=== PATIENT | female | born 1960 | race Caucasian/White ===

== ENCOUNTER → 2017-10-14 | Outpatient (CLI) | payer OTHER ==
--- NOTE | 2017-10-17 09:29 | MM ---
Reason for exam: screening (asymptomatic). Last mammogram was performed 3 years ago. History: Patient is postmenopausal. Benign lumpectomy of the right breast, 2004. Took estrogen for 8 years beginning at age 35. Physical Findings: A clinical breast exam by your physician is recommended on an annual basis and results should be correlated with mammographic findings. MG Screening Mammo w CAD Bilateral CC and MLO view(s) were taken. Prior study comparison: October 11, 2014, bilateral MG screening mammo w CAD. January 04, 2013, bilateral digital screening mammo w/CAD. The breast tissue is heterogeneously dense. This may lower the sensitivity of mammography. There arefew typically benign round calcifications in the left breast. There is no discrete abnormality. ASSESSMENT: Benign, BI-RAD 2 RECOMMENDATION: Routine screening mammogram of both breasts in 1 year.
== END | disposition home or self-care (01) ==
LOC: RADMAMWWP 06:54
PROVIDERS: ATTEND Family Medicine
DX: Z12.31 Encounter for screening mammogram for malignant neoplasm of breast (principal)
CPT/HCPCS: 77067

== ENCOUNTER → 2018-11-07 | Outpatient (CLI) | payer OTHER ==
--- NOTE | 2018-11-08 10:24 | MM ---
Reason for exam: screening (asymptomatic). Last mammogram was performed 1 year and 1 month ago. History: Patient is postmenopausal. Benign lumpectomy of the right breast, 2004. Took estrogen for 8 years beginning at age 35. Physical Findings: A clinical breast exam by your physician is recommended on an annual basis and results should be correlated with mammographic findings. MG Screening Mammo w CAD Bilateral CC and MLO view(s) were taken. Prior study comparison: October 14, 2017, bilateral MG screening mammo w CAD. October 11, 2014, bilateral MG screening mammo w CAD. The breast tissue is heterogeneously dense. This may lower the sensitivity of mammography. There are benign appearing round calcifications in the left breast. There is no discrete abnormality. ASSESSMENT: Benign, BI-RAD 2 RECOMMENDATION: Routine screening mammogram of both breasts in 1 year.
== END | disposition home or self-care (01) ==
LOC: RADMAMWWP 14:07
PROVIDERS: ATTEND Family Medicine
DX: Z12.31 Encounter for screening mammogram for malignant neoplasm of breast (principal)
CPT/HCPCS: 77067

== ENCOUNTER 2019-01-25 19:44 | Emergency (ER) | payer OTHER ==
[2019-01-25 19:48] VITALS: BP 131/87; PULSE 88; RESP 16; TEMP 98.5
[2019-01-25] MEDS ORDERED: KETOROLAC 30 MG/ML 1 ML VIAL IM STA (20:04)
--- NOTE | 2019-01-25 20:16 | XR ---
EXAMINATION TYPE: XR ankle complete LT DATE OF EXAM: 01/25/2019 COMPARISON: NONE HISTORY: Pain and swelling TECHNIQUE: 3 views FINDINGS: There is significant soft tissue swelling over the lateral malleolus. There is irregular co rtex lateral aspect of distal fibula suspicious for nondisplaced chip fracture. There is no dislocati on. Ankle joint spaces are normal. IMPRESSION: There is probably a nondisplaced chip fracture of the tip of the distal fibula. Soft tiss ue swelling.
--- NOTE | 2019-01-25 20:20 | XR ---
EXAMINATION TYPE: XR foot complete LT DATE OF EXAM: 01/25/2019 COMPARISON: NONE HISTORY: Pain and swelling TECHNIQUE: 3 views FINDINGS: Metatarsals are intact. There is a nondisplaced fracture of the distal fibula. Fragment laura sures 1 cm. There are no erosions. Joint spaces are normal. IMPRESSION: Nondisplaced distal fibula fracture. Lateral soft tissue swelling at the ankle.
--- NOTE | 2019-01-25 21:06 | ED ---
General Adult HPI - General Chief complaint: Extremity Injury, Lower Stated complaint: ankle/foot injury Time Seen by Provider: 01/25/19 19:54 Source: patient Mode of arrival: ambulatory Limitations: no limitations - History of Present Illness Initial comments: Patient is a 58-year-old female presenting to the emergency department with a chief complaint of ankle pain. Patient reports she tripped and fell and in attempt to brace herself she inverted her left ankle. Patient reports ecchymosis, swelling and pain along the left lateral malleolus. patient denies any numbness or team. Patient reports the pain is a 9 and throbbing. Patient denies taking medication to alleviate the symptoms. Patient reports pain with any movement or weightbearing. Patient reports resting it does help alleviate some of the pain. - Related Data Allergies Allergy/AdvReac Type Severity Reaction Status Date / Time amoxicillin Allergy Swelling Verified 01/25/19 19:48 erythromycin base Allergy Rash/Hives Verified 01/25/19 19:48 sulfamethoxazole Allergy Rash/Hives Verified 01/25/19 19:48 [From ] trimethoprim [From ] Allergy Rash/Hives Verified 01/25/19 19:48 Review of Systems ROS Statement: Those systems with pertinent positive or pertinent negative responses have been documented in the HPI. ROS Other: All systems not noted in ROS Statement are negative. Past Medical History Past Medical History: No Reported History History of Any Multi-Drug Resistant Organisms: None Reported Past Surgical History: No Surgical Hx Reported Past Psychological History: No Psychological Hx Reported Smoking Status: Current every day smoker Past Alcohol Use History: None Reported Past Drug Use History: None Reported General Exam Limitations: no limitations General appearance: alert, in no apparent distress Head exam: Present: atraumatic, normocephalic, normal inspection Eye exam: Present: normal appearance ENT exam: Present: normal exam, normal external ear exam Neck exam: Present: normal inspection Respiratory exam: Present: normal lung sounds bilaterally Cardiovascular Exam: Present: regular rate, normal rhythm, normal heart sounds Extremities exam: Present: tenderness (Tenderness along the left lateral malleolus.), normal capillary refill, joint swelling (Left ankle), other (+2 dorsalis pedis and posterior tibialis bilaterally.). Absent: normal inspection (Soft tissue swelling, ecchymosis on the left lateral malleolus. No abrasions or lacerations.), full ROM (Limited range of motion due to pain.), calf tenderness Back exam: Present: normal inspection, full ROM Neurological exam: Present: alert, oriented X3 Psychiatric exam: Present: normal affect, normal mood Skin exam: Present: warm, intact, normal color Course Vital Signs 01/25/19 19:45 Temperature 98.5 F Pulse Rate 88 Respiratory 16 Rate Blood Pressure 131/87 O2 Sat by Pulse 99 Oximetry Procedures - Orthopedic Splinting/Casting Injury #1 Side: left Lower Extremity Injury Location: ankle Lower Extremity Immobilizer: posterior splint, stirrup splint, Navdeep wrap, synthetic pre-padded splint Other Orthopedic Equipment: crutches Medical Decision Making - Medical Decision Making Patient is a 58-year-old female presenting to the emergency department with chief complaint of ankle pain. Patient does have edema, discoloration and tenderness along the left lateral malleolus. X-rays indicative of a nondisplaced distal fibular fracture. Patient refused narcotic analgesics. Patient given Toradol. Posterior splint and stirrup placed. Patient advised to alternate between Tylenol and ibuprofen for pain control. Patient advised to follow with orthopedics and further management. Strict return parameters were thoroughly discussed the patient was understanding and agreeable. Patient states she has a crutches at home. Case discussed with physician. Disposition Clinical Impression: Nondisplaced fracture of distal end of fibula Disposition: HOME SELF-CARE Condition: Stable Instructions (If sedation given, give patient instructions): Ankle Fracture (DC) Additional Instructions: Please follow with orthopedics. Alternate between Tylenol and ibuprofen for pain control. Apply ice compress to minimize symptoms. Please return to emergency department if symptoms worsen. Is patient prescribed a controlled substance at d/c from ED?: No Referrals: Padmini Villavicencio DO [Primary Care Provider] - 1-2 days Joe Zepeda PAC [[facility] [employer] [facility]] - 1-2 days Time of Disposition: 21:05
== END 2019-01-25 21:14 | disposition home or self-care (01) ==
LOC: EC 19:44
DX: S82.832A Other fracture of upper and lower end of left fibula, initial encounter for closed fracture (principal); F17.200 Nicotine dependence, unspecified, uncomplicated; Z88.0 Allergy status to penicillin; Z88.1 Allergy status to other antibiotic agents; Z88.2 Allergy status to sulfonamides; Z53.29 Procedure and treatment not carried out because of patient's decision for other reasons; W01.0XXA Fall on same level from slipping, tripping and stumbling without subsequent striking against object, initial encounter; Y92.009 Unspecified place in unspecified non-institutional (private) residence as the place of occurrence of the external cause
CPT/HCPCS: 73610; 73630; 99283; 29515; 96372; J1885

== ENCOUNTER → 2019-10-03 | Outpatient (CLI) | payer OTHER | END | disposition home or self-care (01) | LOC: LABWHC1 08:24 | PROVIDERS: ATTEND Surgery | DX: Z11.59 Encounter for screening for other viral diseases (principal) ==

== ENCOUNTER 2019-10-05 09:21 | Day surgery (SDC) | payer OTHER ==
[2019-10-04 10:19] VITALS: BMI 19.3
[~2019-10-05 09:21] MED LIST: LACTATED RINGERS 1,000 ML IV SCH
[2019-10-05 10:04] VITALS: RESP 16; TEMP 97.8
[2019-10-05] MEDS ORDERED: LIDOCAINE 1% INJ 10MG/ML (20 ML MDV) ONE (10:18)
[2019-10-05] MEDS ORDERED: PROPOFOL 10 MG/ML 20 ML VIAL IV ONE (10:18)
--- NOTE | 2019-10-05 10:20 | P.GSHP ---
History of Present Illness H&P Date: 10/05/19 Chief Complaint: Nausea, right upper quadrant pain This a 58-year-old female presents today for EGD. Patient is a complete some nausea and epigastric/right upper quadrant pain Past Medical History Past Medical History: GERD/Reflux Additional Past Medical History / Comment(s): STATES STOMACH PAIN AND FEELS FULL. History of Any Multi-Drug Resistant Organisms: None Reported Past Surgical History: Appendectomy, Hysterectomy Additional Past Surgical History / Comment(s): EXPLORATORY SURGERY, COLONOSCOPY Past Anesthesia/Blood Transfusion Reactions: No Reported Reaction Past Psychological History: No Psychological Hx Reported Smoking Status: Current every day smoker Past Alcohol Use History: None Reported Additional Past Alcohol Use History / Comment(s): SMOKES 5-6 CIGARETTES/DAY. , SMOKED OFF AND ON APPROX 15-20 YEARS. Past Drug Use History: None Reported - Past Family History Mother Family Medical History: No Reported History Medications and Allergies Home Medications Medication Instructions Recorded Confirmed Type Cetirizine HCl [Children's Zyrtec 10 mg PO DAILY PRN 10/04/19 10/05/19 History Chewable] Famotidine [Pepcid] 20 mg PO BID 10/04/19 10/05/19 History Allergies Allergy/AdvReac Type Severity Reaction Status Date / Time amoxicillin Allergy Swelling Verified 10/05/19 09:57 erythromycin base Allergy Rash/Hives Verified 10/05/19 09:57 sulfamethoxazole Allergy Rash/Hives Verified 10/05/19 09:57 [From ] trimethoprim [From ] Allergy Rash/Hives Verified 10/05/19 09:57 Surgical - Exam Vital Signs Temp Pulse Resp BP Pulse Ox 97.8 F 88 16 143/76 99 10/05/19 10:03 10/05/19 10:03 10/05/19 10:03 10/05/19 10:03 10/05/19 10:03 - General well developed, well nourished, no distress - Eyes PERRL - ENT normal pinna - Neck no masses - Respiratory normal expansion - Cardiovascular Rhythm: regular - Abdomen Abdomen: soft, non tender Assessment and Plan Assessment: History of epigastric and right quadrant pain. We'll perform EGD.
--- NOTE | 2019-10-05 10:27 | P.OP ---
Date of Procedure: 10/05/19 Preoperative Diagnosis: Nausea, right upper quadrant pain Postoperative Diagnosis: Mild antral gastritis No significant hiatal hernia Mild esophagitis Procedure(s) Performed: EGD Anesthesia: MAC Surgeon: Robbie Olvera Pathology: other (Antral, esophagus) Condition: stable Disposition: PACU Description of Procedure: The patient's placed on the endoscopy table in the lateral position. She received IV sedation. The gastroscope was oropharynx and passed in the esophagus and into the stomach. Scope was then placed through the pylorus. The first and portion duodenum appeared normal. Scope was then brought back the antrum and this appeared mildly inflamed. A biopsies performed. Scope was unretroflexed and remainder of the stomach appeared normal. There is no significant hiatal hernia. GE junction was at 47. The distal esophagus appeared mildly inflamed and a biopsies performed. The proximal esophagus appeared normal. Scope was withdrawn for patient.
[2019-10-05 10:59] VITALS: BP 131/82; PULSE 84
--- NOTE | 2019-10-05 14:56 | NM ---
Nuclear medicine hepatobiliary scan. HISTORY: Pain. DOSAGE: The patient received 1.1 micrograms of CCK and 4.2 mCi of Technetium 99m Choletec. FINDINGS: There is normal hepatic extraction. The gallbladder is seen by 30 minutes. There is bilia ry to bowel clearance is not seen at 60 minutes and delayed. Ejection fraction is 12%. IMPRESSION: 1. Correlate for biliary dyskinesia
== END 2019-10-05 11:55 | disposition home or self-care (01) ==
LOC: ORWHC2ENDO 09:21
PROVIDERS: ATTEND Surgery
DX: K29.50 Unspecified chronic gastritis without bleeding (principal); K21.0 Gastro-esophageal reflux disease with esophagitis; Z90.710 Acquired absence of both cervix and uterus; Z98.890 Other specified postprocedural states; F17.210 Nicotine dependence, cigarettes, uncomplicated; Z79.899 Other long term (current) drug therapy; Z88.1 Allergy status to other antibiotic agents; Z88.0 Allergy status to penicillin; Z88.2 Allergy status to sulfonamides
CPT/HCPCS: 88305; 78227; 43239; A9537; J2805; J2001; J2704

== ENCOUNTER 2019-10-15 08:17 | Day surgery (SDC) | payer OTHER ==
[2019-10-12 12:00] VITALS: BMI 18.9
[~2019-10-15 08:17] MED LIST changes: +ACETAMINOPHEN TAB 500 MG TAB PO ONE; +CLINDAMYCIN 900 MG in DEXTROSE 5% IN WATER 50 ML IVPB ONE; +DEXAMETHASONE SOD PHOSPHATE 10 MG/ML 1 ML VIAL IV ONE; +GENTAMICIN 300 MG in SODIUM CHLORIDE 0.9% 100 ML IVPB ONE; +HEPARIN SODIUM,PORCINE 5,000 UNIT/ML 1 ML VIAL SQ ONE; +HYDROmorphone 0.5 MG/0.5 ML SYRINGE IVP PRN; +LIDOCAINE 1% (10MG/ML) FOR IV START INTRADERMA PRN; +ONDANSETRON 4 MG/2 ML VIAL IVP ONE
--- NOTE | 2019-10-15 09:44 | P.GSHP ---
History of Present Illness H&P Date: 10/15/19 Chief Complaint: Right quadrant pain Is a 58-year-old female second instrument quadrant pain. Her recent HIDA scan shows abnormal ejection fraction consistent with biliary dyskinesia and chronic cholecystitis. Past Medical History Past Medical History: GERD/Reflux Additional Past Medical History / Comment(s): environmental allergies History of Any Multi-Drug Resistant Organisms: None Reported Past Surgical History: Hysterectomy Additional Past Surgical History / Comment(s): exploratory laproscopic sx. Past Anesthesia/Blood Transfusion Reactions: No Reported Reaction Smoking Status: Current every day smoker - Past Family History Mother Family Medical History: No Reported History Medications and Allergies Home Medications Medication Instructions Recorded Confirmed Type Cetirizine HCl [Children's Zyrtec 10 mg PO DAILY PRN 10/04/19 10/15/19 History Chewable] Famotidine [Pepcid] 20 mg PO BID 10/04/19 10/15/19 History Allergies Allergy/AdvReac Type Severity Reaction Status Date / Time amoxicillin Allergy Swelling Verified 10/15/19 08:36 erythromycin base Allergy Rash/Hives Verified 10/15/19 08:36 sulfamethoxazole Allergy Rash/Hives Verified 10/15/19 08:36 [From Septra] trimethoprim [From Decra] Allergy Rash/Hives Verified 10/15/19 08:36 Surgical - Exam Vital Signs Temp Pulse Resp BP Pulse Ox 97.1 F L 82 16 126/76 97 10/15/19 08:44 10/15/19 08:44 10/15/19 08:44 10/15/19 08:44 10/15/19 08:44 - General well developed, well nourished, no distress - Eyes PERRL - ENT normal pinna - Neck no masses - Respiratory normal expansion - Cardiovascular Rhythm: regular - Abdomen Abdomen: soft, non tender Assessment and Plan Assessment: Chronic cholecystitis. We'll perform laparoscopic cholecystectomy.
[2019-10-15] MEDS ORDERED: ePHEDrine SULFATE/0.9% NACL/PF 50 MG/5 ML SYRINGE IV ONE (10:08)
[2019-10-15] MEDS ORDERED: ROCURONIUM BROMIDE 10 MG/ML 5 ML VIAL IV ONE (10:08)
[2019-10-15] MEDS ORDERED: PROPOFOL 10 MG/ML 20 ML VIAL IV ONE (10:08)
[2019-10-15] MEDS ORDERED: KETOROLAC 30 MG/ML 1 ML VIAL ONE (10:08)
[2019-10-15] MEDS ORDERED: LIDOCAINE 1% INJ 10MG/ML (20 ML MDV) ONE (10:08)
[2019-10-15] MEDS ORDERED: NEOSTIGMINE 1 MG/ML 10 ML VIAL ONE (10:08)
[2019-10-15] MEDS ORDERED: SUCCINYLCHOLINE CHLORIDE 100 MG/5 ML SYR IV ONE (10:08)
[2019-10-15] MEDS ORDERED: fentaNYL (PF) 50 MCG/ML 2 ML AMP ONE (10:08)
[2019-10-15] MEDS ORDERED: GLYCOPYRROLATE 0.2 MG/ML 2 ML VIAL ONE (10:08)
[2019-10-15] MEDS ORDERED: MIDAZOLAM 2 MG/2 ML VIAL ONE (10:08)
[2019-10-15] MEDS ORDERED: BUPIVACAIN-EPI 0.25%-1:200,000 30 ML VIAL SQ ONE (10:28)
--- NOTE | 2019-10-15 10:42 | P.OP ---
Date of Procedure: 10/15/19 Preoperative Diagnosis: Cholecystitis Postoperative Diagnosis: Cholecystitis Procedure(s) Performed: Laparoscopic cholecystectomy Anesthesia: ARI Surgeon: Robbie Olvera Estimated Blood Loss (ml): 10 Pathology: other (Gallbladder) Condition: stable Disposition: PACU Description of Procedure: The patient was placed on the operating table. The patient received a general endotracheal tube anesthesia. The patients abdomen was prepped and draped in the usual sterile fashion. Through an infraumbilical stab incision, the fascia of the anterior abdominal wall was grasped with a pair of Kochers and then the Veress needle was placed in the peritoneal cavity. Position of the Veress needle was confirmed with positive drop test. The abdomen was then insufflated. After adequate insufflation, the 10 mm trocar was placed in the peritoneal cavity. Following this the laparoscope was placed in the peritoneal cavity. The patient was placed in the head-up, right side up position and then a 5 mm trocar was placed in the right lateral and right subcostal position under direct visualization. A 8 mm trocar was placed in the epigastric position. The gallbladder was grasped in the fundus and infundibulum. Traction on the gallbladder was placed in the lateral and the cephalad positions. The triangle of Calot was visualized.. The cystic duct was bluntly dissected until the union of the cystic duct and common bile duct was seen. A critical view of safety was achieved. The cystic duct was then divided and sealed with the Harmonic scissors. A PDS Endoloop was then placed throughout the cystic duct stump. The cystic artery divided and sealed with the Harmonic scissors. The gallbladder was then removed from the liver bed using Harmonic scissors. The gallbladder was then extracted through the epigastric port site. Operative field was checked for any bleeding spots and Harmonic scissors was used to coagulate the liver bed. The abdomen was irrigated. The trocars were removed. The skin was closed using interrupted 3-0 Vicryl suture. Dermabond dressing were applied. The patient tolerated the procedure well.
[2019-10-15 10:58] VITALS: TEMP 96.8
[2019-10-15 11:22] VITALS: RESP 16
[2019-10-15] MEDS ORDERED: HYDROcodone/APAP 5-325MG 1 EACH TAB PO ONE (11:50)
[2019-10-15 12:21] VITALS: BP 122/70; PULSE 52
== END 2019-10-15 12:44 | disposition home or self-care (01) ==
LOC: OR 08:17
PROVIDERS: ATTEND Surgery
DX: K81.1 Chronic cholecystitis (principal); K82.8 Other specified diseases of gallbladder; K21.9 Gastro-esophageal reflux disease without esophagitis; F17.210 Nicotine dependence, cigarettes, uncomplicated; Z88.1 Allergy status to other antibiotic agents; Z88.0 Allergy status to penicillin; Z88.2 Allergy status to sulfonamides; Z79.899 Other long term (current) drug therapy; Z90.710 Acquired absence of both cervix and uterus
CPT/HCPCS: 88304; 47562; J2250; J1644; J1100; J2710; J2405; J2001; J3010; J1885; J1580; J0330; J2704

== ENCOUNTER → 2020-07-25 | Outpatient (CLI) | payer OTHER ==
--- NOTE | 2020-07-31 10:29 | MM ---
Reason for exam: screening (asymptomatic). Last mammogram was performed 1 year and 9 months ago. History: Patient is postmenopausal. Benign lumpectomy of the right breast, 2004. Took estrogen for 8 years beginning at age 35. Physical Findings: A clinical breast exam by your physician is recommended on an annual basis and results should be correlated with mammographic findings. MG Screening Mammo w CAD Bilateral CC and MLO view(s) were taken. Prior study comparison: November 07, 2018, bilateral MG screening mammo w CAD. October 14, 2017, bilateral MG screening mammo w CAD. The breast tissue is heterogeneously dense. This may lower the sensitivity of mammography. No significant changes when compared with prior studies. ASSESSMENT: Benign, BI-RAD 2 RECOMMENDATION: Routine screening mammogram of both breasts in 1 year.
== END | disposition home or self-care (01) ==
LOC: RADMAMWWP 13:05
PROVIDERS: ATTEND Nurse Practitioner Family
DX: Z12.31 Encounter for screening mammogram for malignant neoplasm of breast (principal)
CPT/HCPCS: 77067

== ENCOUNTER → 2021-10-07 | Outpatient (CLI) | payer OTHER ==
--- NOTE | 2021-10-09 11:42 | MM ---
Reason for Exam: Screening (asymptomatic). Last mammogram was performed 1 year(s) and 3 month(s) ago. Patient History: Menarche at age 14. First Full-Term at age 21. Left ovary removed at age 35. Right ovary removed at age 35. Hysterectomy at age 35. Postmenopausal. Estrogen for 8 years from age 35 until age 43. 2004, Benign Lumpectomy on the right side. Risk Values: Sejal 5 year model risk: 1.2%. NCI Lifetime model risk: 6.7%. Prior Study Comparison: 10/14/2017 Bilateral Screening Mammogram, [facility]. 11/07/2018 Bilateral Screening Mammogram, [facility]. 07/25/2020 Bilateral Screening Mammogram, [facility]. Tissue Density: The breast tissue is extremely dense which could obscure a lesion on mammography. Findings: Analyzed By CAD. Parenchymal pattern appears stable. No suspicious groups of microcalcifications, spiculated or lobular masses, architectural distortion or other secondary signs of malignancy are mammographically apparent. Overall Assessment: Benign, BI-RAD 2 Management: Screening Mammogram of both breasts in 1 year. A negative mammogram report should not preclude additional follow up of suspicious palpable abnormalities. Patient should continue monthly self breast exam. A clinical breast exam by your physician is recommended on an annual basis and results should be correlated with mammographic findings. Electronically signed and approved by: Jaime Gee D.O. Radiologis
== END | disposition home or self-care (01) ==
LOC: RADMAMWWP 10:59
PROVIDERS: ATTEND Family Medicine
DX: Z12.31 Encounter for screening mammogram for malignant neoplasm of breast (principal); Z78.0 Asymptomatic menopausal state
CPT/HCPCS: 77067